=== PATIENT | male | born 1955 | race Caucasian/White ===

== ENCOUNTER → 2018-12-28 | Day surgery (SDC) | payer OTHER ==
[~2018-12-28] MED LIST: ALBUTEROL SULFATE 2.5 MG/3 ML NEBU. NEB PRN; ATROPINE 0.5 MG/5 ML DISP.SYRIN. IV PRN; CLOP75TA57 PO; IV RINGERS SOLUTION,LACTATED 1,000 ML IV SCH; LISI10TA2 PO; METO50TA6 PO; MIDAZOLAM HCL PF 2 MG/2 ML VIAL. IV PRN; NIAC500T PO; ONDANSETRON PF 4 MG/2 ML VIAL. IV PRN; PHENOL ORAL SPRAY 177ML BOTTLE. MM PRN; PROPOFOL 20 ML IV ONE; SIMV40TA18 PO; TRAV5DRO EACHEYE; diphenhydrAMINE 50 MG/ML VIAL IV PRN
[2018-12-28 12:39] VITALS: BP 114/76
== END ==
LOC: SURG 09:59
PROVIDERS: ATTEND Internal Medicine Gastroenterology
DX: R10.13 Epigastric pain (principal); I10 Essential (primary) hypertension; I25.10 Atherosclerotic heart disease of native coronary artery without angina pectoris; F19.90 Other psychoactive substance use, unspecified, uncomplicated; E78.5 Hyperlipidemia, unspecified; H40.9 Unspecified glaucoma; Z88.5 Allergy status to narcotic agent; Z88.8 Allergy status to other drugs, medicaments and biological substances; Z98.890 Other specified postprocedural states
CPT/HCPCS: 43239; J2704; J7120